=== PATIENT | male | born 1985 | race African-American/Black ===

== ENCOUNTER 2020-06-21 10:44 | Emergency (ER) | payer OTHER ==
[~2020-06-21] VITALS: Ht 167.6 cm; Wt 67.6 kg
[2020-06-21 10:57] VITALS: BP 140/91
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
--- NOTE | 2020-06-21 11:42 | NUR ---
ED Nurse Note: Pt was taken to CT via wc, accomapnied by a tech.
--- NOTE | 2020-06-21 11:55 | NUR ---
ED Nurse Note: Pt returned from CT, not in any distress.
--- NOTE | 2020-06-21 12:08 | Diagnostic Imaging Report ---
Indications: Trauma, head and right-sided facial trauma due to fall Technique: Spiral acquisitions obtained through the brain. Angled axial and coronal 5 x 5 mm slices were reconstructed. Total dose length product 1018 mGycm. CTDI vol(s) 53 mGy. Dose reduction achieved using automated exposure control Comparison: None. Findings: No acute intracranial hemorrhage or edema, mass effect, nor midline shift demonstrated. Normal size ventricles and extra-axial CSF spaces. Normal vallejo-white differentiation. The mastoids are clear. The calvarium is intact. Impression: Negative The CT scanner at [facility] is accredited by the [employer] and the scans are performed using protocols designed to limit radiation exposure to as low as reasonably achievable to attain images of sufficient resolution adequate for diagnostic evaluation.
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
[2020-06-21 12:32] VITALS: BP 136/82
--- NOTE | 2020-06-21 12:32 | NUR ---
ED Nurse Note: Pt cleared by ERMD for discharge. DC instructions/prescription was given and explained to pt and verbalized understanding of teachings. All medical deviecs such as ID band removed. Pt is AAO x4, ambulatory and left with all personal belongings.
== END 2020-06-21 12:32 | disposition home or self-care (01) ==
LOC: EMR 12:15
DX: S09.8XXA Other specified injuries of head, initial encounter (principal); S01.81XA Laceration without foreign body of other part of head, initial encounter; S00.411A Abrasion of right ear, initial encounter; H11.32 Conjunctival hemorrhage, left eye; W19.XXXA Unspecified fall, initial encounter; Y92.9 Unspecified place or not applicable; R29.6 Repeated falls
CPT/HCPCS: 70450; 99284

== ENCOUNTER 2020-07-19 16:30 | Emergency (ER) | payer OTHER ==
[~2020-07-19] VITALS: Ht 167.6 cm; Wt 68.0 kg
--- NOTE | 2020-07-19 16:52 | NUR ---
ED Nurse Note: pt taken to CT
--- NOTE | 2020-07-19 17:01 | NUR ---
ED Nurse Note: pt returned from CT.
[2020-07-19 17:10] VITALS: BP 131/87
--- NOTE | 2020-07-19 17:11 | Diagnostic Imaging Report ---
EXAM: CT Head Without Intravenous Contrast CLINICAL HISTORY: TRAUMA TECHNIQUE: Axial computed tomography images of the head/brain without intravenous contrast. CTDI is 53.40 mGy and DLP is 1154.50 mGy-cm. One or more of the following dose reduction techniques were used: automated exposure control, adjustment of the mA and/or kV according to patient size, use of iterative reconstruction technique. COMPARISON: 06/21/2020. FINDINGS: Brain: No abnormal extra-axial collection. No hemorrhage. Midline shift: No midline shift or mass-effect. Ventricles: The ventricular system is age appropriate. Bones/joints: Calvarium is within normal limits. No acute fracture. Soft tissues: Soft tissue swelling are medial aspect of the left frontal scalp. Sinuses: Visualized sinuses are unremarkable per Mastoid air cells: Mastoid air cells are well pneumatized. Other findings: Axial and coronal images were provided. IMPRESSION: 1. No acute intracranial pathology is detected. 2. If there is concern for etiology such as early acute lacunar infarcts, magnetic resonance imaging of the brain with diffusion-weighted sequences should be performed.
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
[2020-07-19] MEDS ORDERED: AUGMENTIN 875-1 EAC1 ORAL (18:00)
[2020-07-19 18:40] VITALS: BP 124/75
== END 2020-07-19 18:40 | disposition home or self-care (01) ==
LOC: EMR 17:17
DX: S01.01XA Laceration without foreign body of scalp, initial encounter (principal); L08.9 Local infection of the skin and subcutaneous tissue, unspecified; W19.XXXA Unspecified fall, initial encounter; Y92.9 Unspecified place or not applicable
CPT/HCPCS: 70450; 99284